=== PATIENT | male | born 2005 | race Two or more races ===

== ENCOUNTER 2025-03-21 17:40 | Emergency (ER) | payer MEDICAID, SELFPAY ==
[2025-03-21 17:41] VITALS: BP 148/83; PULSE 94; RESP 16; TEMP 36.8; O2SAT 100
[2025-03-21 17:44] VITALS: BMI 22.8
--- NOTE | 2025-03-21 17:48 | XR_ITS ---
Examination: Hand, left 2 views Technique: Hand AP lateral left hand 2 views Date and time of exam: March 21, 2025 1847 hours INDICATIONS: Laceration to the hand today, hand pain. FINDINGS: No fracture. No dislocation. No foreign body IMPRESSION: Negative for foreign body
[2025-03-21] MEDS: SODIUM CHLORIDE 0.9% 1000 ML 1,000 ML 999 ML IV (17:55)
[2025-03-21] MEDS: MORPHINE SULF INJ 10 MG/ML VIAL 4 MG IVP (17:56)
[2025-03-21 18:06] LABS: Basophils % (Auto) 1 % (0-2.5); Eosinophils # (Auto) 0.2 Thou/mm3 (0.0-0.5); Eosinophils % (Auto) 2 % (0-10); Hematocrit 44.3 % (41.0-53.0); Hemoglobin 15.4 g/dL (13.5-16.0); Immature Granulocytes % (Auto) 0 % (0-0); Immature Granulocytes Auto 0.02 Thou/mm3 (0.00-0.00); Lymphocytes # (Auto) 2.8 Thou/mm3 (1.0-4.8); Lymphocytes % (Auto) 32 % (10-50); Mean Corpuscular HGB Conc 34.8 g/dl (31.0-37.0); Mean Corpuscular Hemoglobin 29.1 pg (25.0-35.0); Mean Corpuscular Volume 84 fL (80-100); Monocytes # (Auto) 0.5 Thou/mm3 (0.0-0.8); Monocytes % (Auto) 6 % (0-12); Neutrophils # (Auto) 5.2 Thou/mm3 (1.8-7.7); Neutrophils % (Auto) 59 % (37-80); Nucleated Red Blood Cell % 0 /100 WBC (0); Platelet Count 184 Thou/mm3 (140-440); RDW Standard Deviation 36.7 fL (35.1-43.9); White Blood Count 8.7 Thou/mm3 (3.8-10.6)
--- NOTE | 2025-03-21 18:45 | EDNOTE_ITS ---
ED Wound/Laceration-RME/HPI General Chief Complaint: Wound/Laceration Stated Complaint: LAC TO THE LEFT HAND Time Seen by Provider: 03/21/25 17:44 Arrival date/time: 03/21/25 17:40 RME / HPI RME / HPI narrative: This section includes all my notes and documentations, including HPI, PE, and ED course. Sander Santigao MD HPI: 19 y/ male presents with laceration to the left hand s/p slipping and falling onto a piece of glass while at [employer] just [employer]. Can move and feel the fingers normally. No other complaints. ROS: All negative except as documented in HPI. Physical Exam: General: Alert and oriented. Eyes: Conjunctivae and lids clear. ENT: No nasal congestion. Neck: Supple. Lungs: No respiratory distress. Skin: Warm and dry. Neuro: Alert and oriented X 3. Left Hand: In the palm, there is a 7 cm full?skin thickness laceration with active bleeding. No NVT injury. I reviewed all diagnostic test results: My interpretation of the left hand x-ray is: NAD. My review of the extremity US report is: NAD. Blood tests: unremarkable. At this point, diagnoses include: Laceration of left hand. Treatment here included: IV fluid, Morphine, Toradol, Xylocaine, Unasyn, Bacitracin, Tdap, Laceration repair. See laceration repair procedure note. Post laceration repair, no NVT injury. Significant improvement noted. Provided good wound care instructions. Based on my best medical judgment, made decision no further evaluation or treatment indicated at this time. Patient understands and agrees to the discharge instructions customized and printed, see below. Discharge instructions from Dr. Santiago:? -- Your laceration was repaired with 13 stitches. -- Keep the current dressing intact for 48 hours. -- After 48 hours, change the dressing once daily. -- First remove the dressing gently.? If it does not come off easily, run water through it until it comes off easily. -- Then gently wash with soap and water. -- After completely drying, apply antibiotic ointment and new dressing. -- Elevate above the heart level today and tomorrow as much as possible.? Placing the hand on the head is a good method. -- See a private doctor or return here in 7 days for suture removal.? Total of 3 stitches. -- See a private doctor on 03/23/2025 for recheck. To make sure you are healing without any complications. Ask to make sure there is no injury to your nerves or tendons or blood vessels. You don't want to lose function of your hand. -- Seek immediate medical care with fever, spreading redness from the wound, if you can't move your fingers, your fingers turn cold and blue, or with any concerns. Sander Santiago MD Related Data Previous Rx's ?Medication ?Instructions ?Recorded amoxicillin 875 mg-potassium 1 tab PO BID 3 days #6 ta bs 03/21/25 clavulanate 125 mg tablet Allergies Allergy/AdvReac Type Severity Reaction Status Date / Time No Known Allergies Allergy Verified 03/21/25 17:50 Review of Systems Review of Systems Systems Reviewed: All systems reviewed, normal except as documented Past Medical History Social History SMOKING STATUS: Former smoker ED Exam Narrative Physical exam: Refer to HPI Course Quality Measures none Orders Category Date Time Status IV [Insert IV] NOW Care 03/21/25 17:45 Active Set Up Suture Tray STAT Care 03/21/25 17:47 Active US extremity nonvascular LMTD Stat Exams 03/21/25 18:47 Taken XR hand LT 2V Stat Exams 03/21/25 17:48 Completed CBC Stat Lab 03/21/25 17:44 Completed CMP [Comprehensive Metabolic Panel] Stat Lab 03/21/25 17:44 Completed Hemoglobin and Hematocrit Stat Lab 03/21/25 19:42 Completed Magnesium Stat Lab 03/21/25 17:44 Completed PT [Prothrombin Time with INR] Stat Lab 03/21/25 17:44 Completed PTT [Partial Thromboplastin Time] Stat Lab 03/21/25 17:44 Completed Type and Screen Stat Lab 03/21/25 17:44 Completed Ampicillin/Sulbac Inj [Unasyn Inj] 3 gm Med 03/21/25 18:46 Discontinued Sodium Chloride 0.9% (Pop) [NS 0.9% mini bag] 100 ml IV X1 Bacitracin Oint pkt Med 03/21/25 18:46 Discontinued 1 gm TOP X1 ONE Ketorolac Inj [Toradol Inj] Med 03/21/25 18:46 Discontinued 30 mg IVP X1 ONE Lidocaine 1% 20 ml [Xylocaine 1% 20 ML] Med 03/21/25 17:45 Discontinued 10 ml INFL X1 ONE Morphine Inj Med 03/21/25 17:45 Discontinued 4 mg IVP X1 ONE Sodium Chloride 0.9% 1000 ml [Ns] 1,000 ml Med 03/21/25 17:45 Discontinued IV 999 mls/hr TET,DIP/PERT AC (Adult)-Tdap [Boostrix Adult (Tdap) Med 03/21/25 18:46 Discontinued Vacc] 0.5 ml IMI .ONCE ONE Vital Signs Vital signs: Vital Signs Temperature 98.3 F 03/21/25 17:41 Pulse Rate 94 03/21/25 17:41 Respiratory Rate 16 03/21/25 17:41 Blood Pressure 148/83 H 03/21/25 17:41 Pulse Oximetry (%) 100 03/21/25 17:41 Oxygen Delivery Method Room Air 03/21/25 17:41 Procedures -ED Laceration Laceration 1: Site: hand Side (If applicable): left Size (cm): 7 Description: linear Depth: simple, single layer Local Anesthetic: lidocaine 1% Amount of anesthesia used (mL): 20 Pre-repair: wound explored, irrigated extensively, extensive debridement and wound margins revised Skin layer closed with: nylon Suture size (cm): 3-0 Number of sutures: 13 Technique: simple, interrupted Wound / Laceration MDM Narrative MDM Narrative:: Scribe Attestation: Katya Doll, am scribing for and in the presence of Dr. Santiago. Provider Notation: Although this document has been carefully reviewed, there may still be some phonetic and other typographical errors.? These errors are purely grammatical due to imperfections in the software program and should not be construed in any way to? compromise the substance of the patient's medical care during this visit 19 y/ male presents with laceration to the left hand s/p slipping and falling onto a piece of glass while at [employer] just [employer]. No other complaints. Patient data External records reviewed:: [facility] previous records (No prior ED records available for review.) Clinical information provided by:: patient Social determinants that could affect healthcare access:: none Patient has the following chronic illnesses:: None reported How is presenting disease/condition affected by chronic disease/condition?: no chronic disease Evaluation data The following diagnostics were reviewed and interpreted by me:: lab results and radiology exam(s) Lab and/or radiology exams considered but not ordered:: None Interpretation Summary: I reviewed all diagnostic test results: My interpretation of the left hand x-ray is: NAD. My review of the extremity US report is: NAD. Blood tests: unremarkable. Medications / Prescriptions Medications or Prescriptions considered but not ordered:: None Medication administrations:: Medication Administration History Discontinued Medications Bacitracin (Bacitracin Oint 1 Gm Packet) 1 gm TOP X1 ONE Stop: 03/21/25 18:47 Last Admin: 03/21/25 20:14 Dose: 1 gm Documented By: JILLIAN Diphtheria/Tetanus/Acell Pertussis (Diphth,Pertuss(Acell),Tet Vac 0.5 Ml Syr- Adult) 0.5 ml IMi .ONCE ONE Stop: 03/21/25 18:47 Last Admin: 03/21/25 20:12 Dose: 0.5 ml Documented By: JILLIAN Sodium Chloride (Ns) 1,000 mls @ 999 mls/hr IV .Q1H1M ONE Stop: 03/21/25 18:45 Last Infusion: 03/21/25 18:56 Dose: Infused Documented By: Admin: 03/21/25 17:55 Dose: 999 mls/hr Documented By: EDWARD Ampicillin Sodium/Sulbactam (Sodium 3 gm/ Sodium Chloride) 100 mls @ 200 mls/hr IV X1 ONE Stop: 03/21/25 18:47 Last Admin: 03/21/25 20:13 Dose: 200 mls/hr Documented By: JILLIAN Ketorolac Tromethamine (Ketorolac Inj 30 Mg/Ml Vial) 30 mg IVP X1 ONE Stop: 03/21/25 18:47 Last Admin: 03/21/25 20:03 Dose: Not Given Documented By: BD Non-Admin Reason: Patient Refused Lidocaine HCl (Lidocaine Hcl 1% 20 Ml Vial) 10 ml INFL X1 ONE Stop: 03/21/25 17:46 Last Admin: 03/21/25 18:56 Dose: 10 ml Documented By: YEMI Comments: administered by provider for suture repair. Morphine Sulfate (Morphine Sulf Inj 10 Mg/Ml Vial) 4 mg IVP X1 ONE Stop: 03/21/25 17:46 Last Admin: 03/21/25 17:56 Dose: 4 mg Documented By: EDWARD IV fluid, Morphine, Toradol, Xylocaine, Unasyn, Bacitracin, Tdap Consultations Consultation(s) initiated? (list below): No Diagnosis Wound Differential Diagnosis: laceration, avulsion of skin and other (fracture, strain, cellulitis) Most likely diagnosis given after review of the tests above:: Laceration of left hand. Admission Indicated Admission indicated?: not indicated Explain why admission is indicated or not indicated:: With significant improvement, there was no indication for admission. Admission Request Was there a request for admission?: No Disposition Plan Disposition Plan: Discharge Discharge Attestation Discharge Attestation: The patient and all family members were given an opportunity to ask questions and understood the discharge instructions. Discharge instructions specifically effects, indications for sooner follow up or return to the emergency department, and the expected course of current diagnosis. Patient condition: Stable Discharge Plan Plan Patient Disposition: HOME (Self Care) Prescriptions/Referrals Prescriptions/Med Rec: New amoxicillin-pot clavulanate 875-125 mg tablet 1 tab PO BID 3 Days Qty: 6 0RF Referrals: No Primary/Family,Physician [Primary Care Provider] - In 1 week Problem List Clinical Impression: Laceration of left hand Patient/Caregiver Discharge Instructions Discharge Activity: activity as tolerated Education Materials: ED Laceration, Hand: All Closures Additional Instructions: Discharge instructions from Dr. Santiago:? -- Your laceration was repaired with 13 stitches. -- Keep the current dressing intact for 48 hours. -- After 48 hours, change the dressing once daily. -- First remove the dressing gently.? If it does not come off easily, run water through it until it comes off easily. -- Then gently wash with soap and water. -- After completely drying, apply antibiotic ointment and new dressing. -- Elevate above the heart level today and tomorrow as much as possible.? Placing the hand on the head is a good method. -- See a private doctor or return here in 7 days for suture removal.? Total of 3 stitches. -- See a private doctor on 03/23/2025 for recheck. To make sure you are healing without any complications. Ask to make sure there is no injury to your nerves or tendons or blood vessels. You don't want to lose function of your hand. -- Seek immediate medical care with fever, spreading redness from the wound, if you can't move your fingers, your fingers turn cold and blue, or with any concerns. Instrucciones de aristides del Dr. Santiago: -- Boone laceraci?n fue reparada con 13 puntos de sutura. -- Mantenga el vendaje actual intacto taras 48 horas. -- Despu?s de 48 horas, cambie el vendaje aj vez al d?a. -- Apoorva retire el vendaje con cuidado. Si no se desprende f?cilmente, l?velo con agua hasta que se desprenda f?cilmente. -- Luego, lave suavemente con agua y jab?n. -- Despu?s de secar completamente, aplique asha?ento antibi?johanna y un vendaje nuevo. -- Eleve la herida por encima del nivel del coraz?n hoy y ma?mandi tanto lucas sea posible. Colocar la mano sobre la guillermo es un buen m?todo. -- Consulte con un m?dico particular o regrese aqu? en 7 d?as para que le retiren los puntos. Total de 3 puntos de sutura. -- Consulte con un m?dico particular el 07/19/2025 para aj nueva revisi?n. Para asegurarse de que se est? recuperando sin complicaciones. Pregunte para asegurarse de que no haya lesiones en los nervios, tendones o vasos sangu?neos. No querr?s perder la funci?n de tu mano. -- Busca atenci?n m?dica inmediata si tienes fiebre, enrojecimiento que se extiende desde la herida, no puedes grease remover los dedos, estos se ponen fr?os y azules, o si tienes alguna inquietud. Print Language: Lithuanian Stand Alone Forms: Marlen Award Info., Patient Portal Info Letter
--- NOTE | 2025-03-21 18:47 | XR_ITS ---
Ultrasound soft tissue left hand TECHNIQUE: Oropeza scale sonographic images soft tissue left hand Date and time: March 21, 2025 1909 hours INDICATIONS: Laceration to the hand today FINDINGS: No opaque foreign body seen IMPRESSION: No opaque foreign body seen
[2025-03-21] MEDS: LIDOCAINE HCL 1% 20 ML VIAL 10 ML INFL (18:56)
[2025-03-21 19:08] LABS: Partial Thromboplastin Time 23.1 Seconds (22.0-36.0); Prothrombin Time 11.3 Seconds (9.0-12.2)
[2025-03-21 19:18] LABS: Alanine Aminotransferase 73 U/L (10-49); Albumin, Serum 4.9 gm/dL (3.5-5.0); Albumin/Globulin Ratio 2.3 (1.2-2.2); Alkaline Phosphatase 75 U/L (46-116); Anion Gap 13 (7-16); BUN/Creatinine Ratio 10 Ratio (12-20); Bilirubin,Total 0.4 mg/dL (0.3-1.2); Blood Urea Nitrogen 11 mg/dL (9-23); Carbon Dioxide 23.3 mMol/L (20.0-31.0); Chloride 106 mMol/L (98-107); Creatinine (Component) 1.1 mg/dL (0.6-1.3); Estimated Creatinine Clearance 102.2 mL/min (>60); Globulin 2.1 gm/dL (2.3-3.5); Glucose 125 mg/dL (74-106); Magnesium 1.8 mg/dL (1.6-2.6); Osmolality,Calculated 283 (275-295); Potassium 3.4 mMol/L (3.4-5.1); Sodium 142 mMol/L (136-145); eGFR > 60 See Note
[2025-03-21 20:00] VITALS: BP 132/61; PULSE 88; RESP 16; TEMP 36.9; O2SAT 98
[2025-03-21 20:03] LABS: Hematocrit 39.3 % (41.0-53.0); Hemoglobin 13.9 g/dL (13.5-16.0)
[2025-03-21] MEDS: DIPHTH,PERTUSS(ACELL),TET VAC 0.5 ML SYR- ADULT IMi (20:12)
[2025-03-21] MEDS: AMPICILLIN/SULBAC INJ 3 GM in SODIUM CHLORIDE 0.9% (POP) 100 ML IV (20:13)
[2025-03-21] MEDS: BACITRACIN OINT 1 GM PACKET TOP (20:14)
[2025-03-21] MEDS: KETOROLAC INJ 30 MG/ML VIAL IVP (20:40)
== END 2025-03-21 20:51 | disposition home or self-care (01) ==
PROVIDERS: Physician Assistant; Emergency Provider Emergency Medicine
DX: S61.412A Laceration without foreign body of left hand, initial encounter (principal); W01.110A Fall on same level from slipping, tripping and stumbling with subsequent striking against sharp glass, initial encounter; Y92.828 Other wilderness area as the place of occurrence of the external cause; Z23 Encounter for immunization
CPT/HCPCS: 13132; 36415; 73120; 76882; 80053; 83735; 85014; 85018; 85025; 85610; 85730; 86850; 86900; 86901; 90471; 90715; 96361; 96365; 96375; 99284; J0295; J1885; J2270; J3490; J7030; A9270

== ENCOUNTER 2025-03-28 19:40 | Emergency (ER) | payer MEDICAID, SELFPAY ==
[2025-03-28 19:41] VITALS: BMI 24.2
[2025-03-28 19:46] VITALS: BP 130/77; PULSE 70; RESP 18; TEMP 36.6; O2SAT 98
--- NOTE | 2025-03-28 20:51 | PD.EDWOUND ---
ED Wound/Laceration-RME/HPI General Chief Complaint: Wound Recheck / Suture Removal Stated Complaint: NEED SUTURES REMOVED TO LEFT HAND Time Seen by Provider: 03/28/25 20:17 Source: patient and other (Girlfriend) Arrival date/time: 03/28/25 19:40 Mode of arrival: ambulatory Limitations: language barrier RME / HPI RME / HPI narrative: Patient is a 18-year-old Mexican-speaking male is here today with his girlfriend who provides interpretation. He had sutures placed in his left hand along the palmar aspect 1 week ago. He is here for wound check and possible suture removal. He denies any new pain. Has had no redness or discharge. He has full range of motion of his fingers, distal sensation is intact. Related Data Allergies Allergy/AdvReac Type Severity Reaction Status Date / Time No Known Allergies Allergy Verified 03/28/25 19:41 Review of Systems Review of Systems Systems Reviewed: All systems reviewed, normal except as documented ED Exam General Limitations: Present language barrier General appearance: Present alert and in no apparent distress Head Head exam: Present atraumatic Eye Eye exam: Present normal appearance, PERRL and EOMI ENT ENT exam: Present normal exam, normal oropharynx and mucous membranes moist Neck Neck exam: Present normal inspection, full ROM and trachea midline Chest Chest inspection: Present normal inspection and symmetric chest wall rise Respiratory Respiratory exam: Present normal lung sounds bilaterally Cardiovascular Cardiovascular exam: Present regular rate, normal rhythm and normal heart sounds Abdominal Exam Abdominal exam: Present soft and normal bowel sounds Extremities Exam Extremities exam: Present normal inspection and full ROM Back Exam Back exam: Present normal inspection and full ROM Neurological Exam Neurological exam: Present alert and oriented X3 Psychiatric Psychiatric exam: Present normal affect and normal mood Skin Skin exam: Present warm, dry, intact, normal color and other (Multiple sutures intact at the left palm. There is no erythema, discharge, or skin warmth.) Course Quality Measures none Vital Signs Vital signs: Vital Signs Temperature 97.9 F 03/28/25 19:46 Pulse Rate 70 03/28/25 19:46 Respiratory Rate 18 03/28/25 19:46 Blood Pressure 130/77 03/28/25 19:46 Pulse Oximetry (%) 98 03/28/25 19:46 Oxygen Delivery Method Room Air 03/28/25 19:46 Wound / Laceration MDM Narrative MDM Narrative:: 18-year-old male who is here today for wound check and possible suture removal. He had sutures placed in his left hand 1 week ago. His wound reveals no evidence of dehiscence on exam. A single suture is least. This was reexamined, and I believe the wound would benefit from additional days of healing. Patient agrees to keep his wound clean at home. Return here for wound recheck and possible suture removal in 4 to 5 days. Return sooner for any signs and symptoms of infection including redness, discharge, warmth, or increased pain. Patient data External records reviewed:: [facility] previous records Clinical information provided by:: patient and other (specify) (girlfriend) Social determinants that could affect healthcare access:: none Patient has the following chronic illnesses:: n/a How is presenting disease/condition affected by chronic disease/condition?: no chronic disease Evaluation data The following diagnostics were reviewed and interpreted by me:: other (specify) (n/a) Lab and/or radiology exams considered but not ordered:: n/a Interpretation Summary: n/a Medications / Prescriptions Medications or Prescriptions considered but not ordered:: n/a Medication administrations:: n/a Consultations Consultation(s) initiated? (list below): No Diagnosis Wound Differential Diagnosis: other (Wound check) Most likely diagnosis given after review of the tests above:: Wound check Admission Indicated Admission indicated?: not indicated Admission Request Was there a request for admission?: No Disposition Plan Disposition Plan: Discharge Discharge Attestation Discharge Attestation: The patient and all family members were given an opportunity to ask questions and understood the discharge instructions. Discharge instructions specifically effects, indications for sooner follow up or return to the emergency department, and the expected course of current diagnosis. Patient condition: Stable Discharge Plan Plan Patient Disposition: HOME (Self Care) Patient condition on transfer: Stable Prescriptions/Referrals Referrals: No Primary/Family,Physician [Primary Care Provider] - In 1 week Problem List Clinical Impression: Encounter for re-check of laceration wound Patient/Caregiver Discharge Instructions Education Materials: Wound Care, ED Laceration, Chin, Suture or Tape Additional Instructions: Use Tylenol and ibuprofen as needed for comfort. Continue wound care at home. Do not use any alcohol or iodine. Return here in 4 to 5 days for wound recheck and consider suture removal. Print Language: Mexican Stand Alone Forms: Marlen Award Info., Patient Portal Info Letter
== END 2025-03-28 21:07 | disposition home or self-care (01) ==
PROVIDERS: Emergency Provider Emergency Medicine
DX: S61.412D Laceration without foreign body of left hand, subsequent encounter (principal); X58.XXXD Exposure to other specified factors, subsequent encounter
CPT/HCPCS: 99281

== ENCOUNTER 2025-04-02 14:25 | Emergency (ER) | payer MEDICAID, SELFPAY ==
[2025-04-02 14:36] VITALS: BP 152/83; PULSE 80; RESP 18; TEMP 36.7; O2SAT 98; BMI 27.6
--- NOTE | 2025-04-02 14:52 | PD.EDWOUND ---
ED Wound/Laceration-RME/HPI General Chief Complaint: Wound Recheck / Suture Removal Stated Complaint: Suture removal from left hand Time Seen by Provider: 04/02/25 14:27 Arrival date/time: 04/02/25 14:25 19-year-old male presents to the emergency department today for suture removal patient had sutures placed on the eighth here in the emergency department this is the patient's second recheck patient reports wound dehiscence and wants to make sure the wound closes Limitations: no limitations Related Data Allergies Allergy/AdvReac Type Severity Reaction Status Date / Time No Known Allergies Allergy Verified 04/02/25 14:28 Review of Systems Review of Systems Systems Reviewed: All systems reviewed, normal except as documented Constitutional Constitutional: Reports system reviewed and no additional complaints, except as documented, Denies fever(s) and Denies headache(s) Eyes Eyes: Reports system reviewed and no additional complaints, except as documented and Denies blurry vision ENT Ears, Nose, Mouth, and Throat: Reports system reviewed and no additional complaints, except as documented, Denies headache(s), Denies nasal congestion and Denies nasal discharge Cardiovascular Cardiovascular: Reports system reviewed and no additional complaints, except as documented, Denies chest pain and Denies dyspnea Respiratory Respiratory: Reports system reviewed and no additional complaints, except as documented, Denies chest congestion, Denies cough and Denies dyspnea Gastrointestinal Gastrointestinal: Reports system reviewed and no additional complaints, except as documented and Denies abdominal pain Integumentary/Breasts Skin/Breast: Reports system reviewed and no additional complaints, except as documented, Denies rash and Reports wounds (Sutures in place palmar aspect left hand) Neurologic Neurologic: Reports system reviewed and no additional complaints, except as documented, Reports as per HPI and Denies headache(s) Past Medical History Past Medical History NEUROLOGIC: Negative Neurological Disorders CARDIAC: Negative Cardiac Disorders or Congestive Heart Failure RESPIRATORY: Negative Chronic Obstructive Pulmonary Disease (COPD) GENITOURINARY: Negative Renal Disease ENDOCRINE: Negative Diabetes Mellitus Type 1 or Diabetes Mellitus Type 2 Social History SMOKING STATUS: Current every day smoker ED Exam General Limitations: Present no limitations General appearance: Present alert and in no apparent distress Head Head exam: Present atraumatic Eye Eye exam: Present normal appearance, PERRL and EOMI ENT ENT exam: Present normal exam, normal oropharynx and mucous membranes moist Neck Neck exam: Present normal inspection, full ROM and trachea midline Chest Chest inspection: Present normal inspection and symmetric chest wall rise Respiratory Respiratory exam: Present normal lung sounds bilaterally Cardiovascular Cardiovascular exam: Present regular rate, normal rhythm and normal heart sounds Abdominal Exam Abdominal exam: Present soft and normal bowel sounds Extremities Exam Extremities exam: Present normal inspection and full ROM Back Exam Back exam: Present normal inspection and full ROM Neurological Exam Neurological exam: Present alert, oriented X3, CN II-XII intact, normal gait and reflexes normal; Absent motor sensory deficit Psychiatric Psychiatric exam: Present normal affect and normal mood Skin Skin exam: Present warm, dry and other (Left hand) Course Quality Measures none Vital Signs Vital signs: Vital Signs Temperature 98.0 F 04/02/25 14:36 Pulse Rate 80 04/02/25 14:36 Respiratory Rate 18 04/02/25 14:36 Blood Pressure 152/83 H 04/02/25 14:36 Pulse Oximetry (%) 98 04/02/25 14:36 Oxygen Delivery Method Room Air 04/02/25 14:36 O2 saturation 98% room air with normalized Wound / Laceration MDM Narrative MDM Narrative:: 19-year-old male presents to the emergency department today for suture removal patient had sutures placed on the eighth here in the emergency department this is the patient's second recheck patient reports wound dehiscence and wants to make sure the wound closes On exam patient has sutures in place to the palmar aspect of left hand patient does have wound dehiscence I suspect that I would leave the sutures in place for couple more days that the wound close better therefore sutures were left in place and patient struck to return on Saturday for suture removal Patient data External records reviewed:: [facility] previous records Clinical information provided by:: patient Social determinants that could affect healthcare access:: none Patient has the following chronic illnesses:: None How is presenting disease/condition affected by chronic disease/condition?: no chronic disease Evaluation data The following diagnostics were reviewed and interpreted by me:: other (specify) Lab and/or radiology exams considered but not ordered:: Consider not ordered Interpretation Summary: N/A Medications / Prescriptions Medications or Prescriptions considered but not ordered:: No meds Medication administrations:: No meds Consultations Consultation(s) initiated? (list below): No Diagnosis Wound Differential Diagnosis: laceration, abscess, abrasion and avulsion of skin Most likely diagnosis given after review of the tests above:: Wound dehiscence, sutures in place Admission Indicated Admission indicated?: not indicated Admission Request Was there a request for admission?: No Disposition Plan Disposition Plan: Discharge Discharge Attestation Discharge Attestation: The patient and all family members were given an opportunity to ask questions and understood the discharge instructions. Discharge instructions specifically effects, indications for sooner follow up or return to the emergency department, and the expected course of current diagnosis. Patient condition: Stable Discharge Plan Plan Patient Disposition: HOME (Self Care) Discharge Disposition comment: Stable Problem List Clinical Impression: Encounter for re-check of laceration wound Patient/Caregiver Discharge Instructions Additional Instructions: Please return on Saturday or Saturday for suture removal Print Language: Turkish Stand Alone Forms: Marlen Award Info., Patient Portal Info Letter ADALI/FAVIO Supervising Physician LAW Supervising Physician: Dr butler
== END 2025-04-02 15:20 | disposition home or self-care (01) ==
LOC: SERX 15:38
PROVIDERS: Emergency Provider Emergency Medicine
DX: S61.412D Laceration without foreign body of left hand, subsequent encounter (principal); X58.XXXD Exposure to other specified factors, subsequent encounter
CPT/HCPCS: 99281